=== PATIENT | female | born 1950 ===

== ENCOUNTER 2019-07-21 08:54 | Outpatient (REF) | payer MEDICARE, SELFPAY ==
[2019-07-21 21:16] LABS: ALT 32 U/L (14-59); AST 25 U/L (15-37); Albumin 3.9 g/dL (3.4-5.0); Alkaline Phosphatase 90 U/L (46-116); Anion Gap 10.5 mmol/L (3-11); BUN 22 mg/dL (7-18); Bilirubin, Total 0.5 mg/dL (0.2-1.0); CO2 26.5 mmol/L (21.0-32.0); CREATININE 0.77 mg/dL (0.55-1.02); Calcium 9.2 mg/dL (8.5-10.1); Chloride 106 mmol/L (98-107); Glucose 95 mg/dL (70-100); Potassium 4.6 mmol/L (3.5-5.1); Sodium 143 mmol/L (136-145)
[2019-07-21 21:34] LABS: FREE T4 0.95 ng/dL (0.76-1.46)
[2019-07-21 21:44] LABS: Hemoglobin A1C 5.9 % (4.5-6.2)
[2019-07-23 17:01] LABS: CRP, High Sensitivity 3.99 mg/L
== END 2019-07-21 09:14 ==
LOC: NCHCN 08:54
PROVIDERS: PCP Family Medicine; Visit Provider Family Medicine
DX: E03.9 Hypothyroidism, unspecified (principal); E78.5 Hyperlipidemia, unspecified; R73.09 Other abnormal glucose; E66.9 Obesity, unspecified
CPT/HCPCS: 80053; 86141; 83036; 84439; 84443

== ENCOUNTER 2021-09-26 20:45 | Outpatient (REF) | payer MEDICARE, SELFPAY ==
[2021-09-26 20:48] LABS: Clarity Sl Cloudy (Clear)
[2021-09-26 20:49] LABS: Glucose Color Interference mg/dL (Negative); Ketones Color Interference mg/dL (Negative); Leukocyte Esterase Color Interference (Negative); Nitrite Color Interference (Negative)
[2021-09-26 20:50] LABS: Bilirubin Color Interference (Negative); Blood Color Interference (Negative); Urobilinogen Color Interference EU/dL (Up TO 0.2)
[2021-09-26 20:57] LABS: Bacteria Few HPF (Negative); C & S Indicated? No/Sq. Contamination; Crystals Negative HPF (Negative); Epithelial Cells Many HPF (Negative); Mucus Negative (Negative); RBC 0-2 HPF (0-2)
== END 2021-09-26 20:46 | disposition home or self-care (01) ==
LOC: NCHCN 20:45
PROVIDERS: PCP Family Medicine; Visit Provider Family Medicine
DX: R39.89 Other symptoms and signs involving the genitourinary system (principal)
CPT/HCPCS: 81003; 81015

== ENCOUNTER 2023-01-08 15:08 | Outpatient (REF) | payer MEDICARE, OTHER, SELFPAY ==
--- NOTE | 2023-01-08 14:30 | SKI_PTH ---
PATIENT: Brianna Billings LOC: [facility] U#:[id number] AGE/SX: 72/F ROOM: RE01/08/[address]: Cassandra Dixon : 1950 BED: DIS: 01/08/2023 SPEC #: [id number] RECD: 01/11/23 12:43 STATUS: REED REMelyssa #: [id number] PETTY: 01/08/23 14:[address]: Cassandra Dixon DEPT: Surgical Specimen RECD BY: Peggy Guzmán ENTERED: 01/11/23 12:44 SP TYPE: FABIOLA KRUEGER DR: Bradford Álvarez Tissues: 1 - SKIN BIOPSY(SHAVE/PUNCH) Procedures: SKIN LEVEL 4 Comments: [id number]
== END 2023-01-08 15:09 | disposition home or self-care (01) ==
LOC: NCHCN 15:08
PROVIDERS: PCP Family Medicine; Visit Provider Family Medicine
DX: L82.0 Inflamed seborrheic keratosis (principal)
CPT/HCPCS: 88305